=== PATIENT | female | born 1990 | race African-American/Black ===

== ENCOUNTER 2016-06-01 09:06 | Emergency (ER) | payer MEDICAID, OTHER ==
[~2016-06-01] VITALS: Ht 170.2 cm; Wt 81.5 kg
[~2016-06-01 09:06] MED LIST: BACT800T5 PO; CEPH-460 PO; NAPR-576 PO
[2016-06-01 09:07] VITALS: BP 131/90; PULSE 76; RESP 16; TEMP 98; O2SAT 100
[2016-06-01] MEDS ORDERED: IBUP800T23 PO (10:04)
[2016-06-01] MEDS ORDERED: BACT800T5 PO (10:04)
[2016-06-01] MEDS ORDERED: CEPH-460 PO (10:04)
--- NOTE | 2016-06-01 10:04 | PD ---
HPI Chief Complaint: Lump, Cyst, Hernia Time Seen by Provider: 10:02 Travel History International Travel<30 days: No Contact w/Intl Traveler<30days: No Traveled to known affect area: No History of Present Illness HPI 25-year-old female presents to the emergency Department with complaint of an abscess to her right inner thigh 2 days. Denies fever, chills, nausea, vomiting. Has not tried any treatments or medications to alleviate her symptoms. Has history of abscesses to that area and her coccyx area. Reports the abscess has actually decreased in size. The area is tender. No known allergies. No other modifying factors or associated signs and symptoms. PFSH Past Medical History Hx Anticoagulant Therapy: No Cardiovascular Problems: No Chemotherapy: No Cerebrovascular Accident: No Diabetes: No Diminished Hearing: No Hypertension: Yes Respiratory: No Immunizations Current: Yes ?: Not : 2 Para: 1 Social History Alcohol Use: No Tobacco Use: No Substance Use: No Allergies-Medications (Allergen,Severity, Reaction): Coded Allergies: No Known Allergies (Verified , 06/01/16) Reported Meds & Prescriptions Reported Meds & Active Scripts Active Ibuprofen 800 Mg Tab 800 Mg PO Q6HR PRN Bactrim DS (Sulfamethoxazole-Trimethoprim) 800-160 Mg Tab 1 Tab PO BID 10 Days Keflex (Cephalexin) 500 Mg Cap 500 Mg PO Q6H 10 Days Keflex (Cephalexin) 500 Mg Cap 500 Mg PO Q6H 5 Days Bactrim DS (Sulfamethoxazole-Trimethoprim) 800-160 Mg Tab 1 Tab PO BID Naproxen 500 Mg Tab 500 Mg PO Q12HR PRN Review of Systems Except as stated in HPI: all other systems reviewed are Neg Physical Exam Narrative GENERAL: Well-nourished, well-developed female patient, in no acute distress SKIN: There is an indurated area to the right inner thigh which measures about 1.5 cm in diameter. It is not fluctuant and there is no pointing or drainage. There is no zone of inflammation around it and no lymphangitis. The area is tender to palpation. HEAD: Atraumatic. Normocephalic. EYES: Pupils equal and round. No scleral icterus. No injection or drainage. ENT: Mucosa pink and moist. Airway patent. NECK: Trachea midline. CARDIOVASCULAR: Regular rate. RESPIRATORY: No accessory muscle use. GASTROINTESTINAL: Rounded. MUSCULOSKELETAL: No obvious deformities. No clubbing. No cyanosis. No edema. NEUROLOGICAL: Awake and alert. Oriented 3. No obvious cranial nerve deficits. Motor grossly within normal limits. Normal speech. PSYCHIATRIC: Appropriate mood and affect; insight and judgment normal. Data Data Last Documented VS Vital Signs Date Time Temp Pulse Resp B/P Pulse Ox O2 Delivery O2 Flow Rate FiO2 06/01/16 09:07 98.0 76 16 131/90 100 Room Air MDM Medical Decision Making Medical Screen Exam Complete: Yes Emergency Medical Condition: Yes Medical Record Reviewed: Yes Differential Diagnosis Abscess, cellulitis, follicularis, hydradenitis Narrative Course 25-year-old female with approximately 1.5 cm abscess to the right inner thigh that is nonfluctuant and without erythema, edema, pointing, drainage. The area is tender to palpation. I do not feel the areas ready for incision and drainage. Patient has history of abscess to this area. She also has history of pilonidal abscess. Patient is afebrile nontoxic appearing. She denies fever , chills, nausea, vomiting. Bactrim, Keflex, ibuprofen prescribed for home. Patient is medically cleared and stable for discharge. Discussed reasons to return to the emergency department. Instructed patient to follow up with primary care provider. Patient agrees with treatment plan. The patients vital signs are stable and the patient is stable for outpatient follow-up and treatment. Patient discharged home, stable and in no acute distress. Diagnosis Primary Impression: Abscess Referrals: Primary Care Physician Patient Instructions: Abscess (ED), General Instructions Departure Forms: Tests/Procedures, Work Release Enter return to work date: Jun 02, 2016 Additional Instructions: Complete full course of antibiotics Warm compresses to the affected area Keep area clean and dry Ibuprofen or Tylenol as directed meditate for pain and inflammation Follow-up with primary care provider Return to emergency department immediately with worsening of symptoms Med/Other Pt SpecificInfo: Prescription(s) given Scripts Ibuprofen 800 Mg [id number] Mg PO Q6HR PRN (PAIN) #30 TAB Ref 0 Prov:Mel Mendes PRINCIPAL TECHNOLOGIST 06/01/16 Sulfamethoxazole-Trimethoprim (Bactrim DS)800-160 Mg Tab1 Tab PO BID 10 Days Ref 0 Prov:Mel Mendes PRINCIPAL TECHNOLOGIST 06/01/16 Cephalexin (Keflex)500 Mg [id number] Mg PO Q6H 10 Days Ref 0 Prov:Mel Mendes 06/01/16 Disposition: 01 DISCHARGE HOME Condition: Stable Mel Mendes Jun 01, 2016 10:04
== END 2016-06-01 10:14 | disposition home or self-care (01) ==
LOC: NEPB 09:06
DX: L02.415 Cutaneous abscess of right lower limb (principal); I10 Essential (primary) hypertension
CPT/HCPCS: 99283

== ENCOUNTER 2016-06-23 13:07 | Emergency (ER) | payer OTHER, MEDICAID ==
[~2016-06-23 13:07] MED LIST changes: +IBUP800T23 PO; -NAPR-576 PO
[2016-06-23 13:44] VITALS: BP 121/90; PULSE 78; RESP 20; O2SAT 100
[2016-06-23] MEDS ORDERED: ORPHENADRINE INJ 60 MG/2 ML AMP IM ONE (14:15)
[2016-06-23] MEDS ORDERED: KETOROLAC TROMETHAMINE 60 MG/2 ML (IM) VIAL IM ONE (14:15)
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
[2016-06-23] MEDS ORDERED: IBUP-232 PO (16:17)
[2016-06-23] MEDS ORDERED: BACL10TA PO (16:17)
== END 2016-06-23 16:46 | disposition home or self-care (01) ==
LOC: NEPB 13:07
DX: S16.1XXA Strain of muscle, fascia and tendon at neck level, initial encounter (principal); S66.911A Strain of unspecified muscle, fascia and tendon at wrist and hand level, right hand, initial encounter; R51 Headache; I10 Essential (primary) hypertension; V89.2XXA Person injured in unspecified motor-vehicle accident, traffic, initial encounter
CPT/HCPCS: 72125; 73110; 96372; 99284; J1885; J2360

== ENCOUNTER 2017-02-20 11:45 | Emergency (ER) | payer MEDICAID ==
[~2017-02-20 11:45] MED LIST changes: +BACL10TA PO; -BACT800T5 PO; -CEPH-460 PO; +IBUP-232 PO; -IBUP800T23 PO
[2017-02-20 12:09] VITALS: BP 132/77; PULSE 84; RESP 16; TEMP 98.4; O2SAT 98
== END 2017-02-20 18:03 | disposition left against medical advice (07) ==
LOC: NED 11:45
DX: R23.8 Other skin changes (principal); Z53.21 Procedure and treatment not carried out due to patient leaving prior to being seen by health care provider
CPT/HCPCS: 99281

== ENCOUNTER 2017-05-17 09:06 | Emergency (ER) | payer MEDICAID ==
[~2017-05-17] VITALS: Ht 170.2 cm; Wt 82.0 kg
[2017-05-17 09:07] VITALS: BP 132/75; PULSE 88; RESP 14; TEMP 97.7; O2SAT 96
--- NOTE | 2017-05-17 09:27 | PD ---
HPI Chief Complaint: Cold / Flu Symptoms Time Seen by Provider: 09:18 Travel History International Travel<30 days: No Contact w/Intl Traveler<30days: No Traveled to known affect area: No History of Present Illness HPI 26-year-old female presents to the ED for evaluation of a 3 week history of intermittent nausea and vomiting. Onset gradual. Nausea exacerbated by certain odors. No alleviating factors reported. Patient states that symptoms are similar to previous symptoms. She states her last menstrual period was at the beginning of April. She denies unprotected sex since then. She endorses cold symptoms over the same period of time. She endorses chills and nonproductive cough. She denies headaches, fever, sore throat. 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 She states that her cold symptoms have improved, but her cough lingers. She did not receive this years flu vaccine. PFSH Past Medical History Hx Anticoagulant Therapy: No Cardiovascular Problems: No Chemotherapy: No Cerebrovascular Accident: No Diabetes: No Diminished Hearing: No Hypertension: Yes Respiratory: No Immunizations Current: Yes ?: Unknown LMP: APRIL 2017 : 2 Para: 1 Social History Alcohol Use: No Tobacco Use: No Substance Use: No Allergies-Medications (Allergen,Severity, Reaction): Coded Allergies: No Known Allergies (Verified Adverse Reaction, Unknown, 05/17/17) Reported Meds & Prescriptions Reported Meds & Active Scripts Active Review of Systems Except as stated in HPI: all other systems reviewed are Neg Physical Exam Narrative GENERAL: Well-nourished, well-developed AA female in no acute distress. SKIN: Warm and dry. HEAD: Normocephalic. Atraumatic. EYES: No scleral icterus. No injection or drainage. PERRLA. EOMI. ENT: Pearly lopez tympanic membranes bilaterally. Nasal mucosa is moist. Oropharynx without erythema, edema or exudate. NECK: Supple, trachea midline. No JVD or lymphadenopathy. CARDIOVASCULAR: Regular rate and rhythm without murmurs, gallops, or rubs. RESPIRATORY: Breath sounds clear and equal bilaterally. No accessory muscle use. GASTROINTESTINAL: Abdomen soft, non-tender, nondistended. + Bowel sounds MUSCULOSKELETAL: No cyanosis, or edema. BACK: Nontender without obvious deformity. No CVA tenderness. Data Data Last Documented VS Vital Signs Date Time Temp Pulse Resp B/P (MAP) Pulse Ox O2 Delivery O2 Flow Rate FiO2 05/17/17 09:07 97.7 88 14 132/75 (94) 96 Orders Orders Ed Urine Pregnancytest Poc (05/17/17 09:22) [facility] Medical Decision Making Medical Screen Exam Complete: Yes Emergency Medical Condition: Yes Differential Diagnosis Upper airway cough syndrome versus viral viral syndrome versus versus other Narrative Course 26-year-old female presents to the ED for evaluation of a 3 week history of intermittent nausea and vomiting. Nausea exacerbated by certain odors. She states that symptoms are similar to previous symptoms. She states her last menstrual period was at the beginning of April. She denies unprotected sex since then. Also complains of improving cold symptoms. Vitals reviewed. Physical exam unremarkable. Urine test positive. This is first trimester . Patient denies abdominal pain, vaginal bleeding or discharge. Patient's instructed to abstain from drinking or smoking, begin vitamins and follow up with the CHEMIST INTERN. She is stable and discharged home. Diagnosis Primary Impression: First trimester Referrals: Nurse Private Duty Patient Instructions: First Trimester (ED), General Instructions Additional Instructions: Rest, hydrate. Don't drink or smoke! Begin vitamins. These are available [id number]. Establish care with sleeping car porter as soon as possible. Return to the ED for any urgent or emergent medical condition. Disposition: 01 DISCHARGE HOME Condition: Stable Iris Lombardi May 17, 2017 09:27
== END 2017-05-17 10:05 | disposition home or self-care (01) ==
LOC: NEPK 09:06
DX: O21.9 Vomiting of pregnancy, unspecified (principal); Z3A.00 Weeks of gestation of pregnancy not specified
CPT/HCPCS: 84703; 99282

== ENCOUNTER 2017-05-31 10:02 | Emergency (ER) | payer MEDICAID, OTHER ==
[~2017-05-31] VITALS: Ht 154.9 cm; Wt 81.5 kg
[2017-05-31 10:05] VITALS: BP 120/74; PULSE 89; RESP 14; TEMP 98.5; O2SAT 99
--- NOTE | 2017-05-31 10:25 | PD ---
HPI Chief Complaint: GI Complaint Time Seen by Provider: 10:18 Travel History International Travel<30 days: No Contact w/Intl Traveler<30days: No Traveled to known affect area: No History of Present Illness HPI 26-year-old female, approximately 7 weeks , presents to the emergency Department with complaint of vaginal itching times one week. Reports nausea and vomiting yesterday. Reports subjective fevers yesterday. Denies continued vomiting or subjective fevers today. Denies abdominal pain, cramping. Denies vaginal discharge, odor, bleeding, leaking. Denies dysuria. Last menstrual period was April 02. . Is not taking any medications or tried any treatments to alleviate her symptoms. Symptoms are mild in severity. No known aggravating or relieving factors. No known exposure to STDs. PFSH Past Medical History Hx Anticoagulant Therapy: No Cardiovascular Problems: No Chemotherapy: No Cerebrovascular Accident: No Diabetes: No Diminished Hearing: No Hypertension: Yes Respiratory: No Immunizations Current: Yes ?: LMP: 7 weeks : 2 Para: 1 Social History Alcohol Use: No Tobacco Use: No Substance Use: No Allergies-Medications (Allergen,Severity, Reaction): Coded Allergies: No Known Allergies (Verified Adverse Reaction, Unknown, 05/31/17) Reported Meds & Prescriptions Reported Meds & Active Scripts Active Review of Systems Except as stated in HPI: all other systems reviewed are Neg Physical Exam Narrative GENERAL: Well-nourished, well-developed black female patient, in no acute distress; afebrile, nontoxic-appearing SKIN: Warm and dry. HEAD: Atraumatic. Normocephalic. EYES: Pupils equal and round. No scleral icterus. No injection or drainage. ENT: Mucous membranes pink and moist. NECK: Trachea midline. No lymphadenopathy. CARDIOVASCULAR: Regular rate and rhythm. No murmur appreciated. RESPIRATORY: No accessory muscle use. Clear to auscultation. Breath sounds equal bilaterally. GASTROINTESTINAL: Abdomen soft, non-tender, nondistended. Bilateral pelvic region nontender to palpation. Hepatic and splenic margins not palpable. No guarding, rigidity, rebound tenderness. PELVIC: Exam done in the presence of a nurse. Speculum exam reveals nonedematous and nonerythematous cervix with minimal creamy white, nonodorous discharge. Bimanual exam reveals no palpable masses or adnexa tenderness, no uterine tenderness. No cervical motion tenderness. BACK: No CVA tenderness. MUSCULOSKELETAL: No obvious deformities. No clubbing. No cyanosis. No edema. NEUROLOGICAL: Awake and alert. No obvious cranial nerve deficits. Motor grossly within normal limits. Normal speech. PSYCHIATRIC: Appropriate mood and affect; insight and judgment normal. Data Data Last Documented VS Vital Signs Date Time Temp Pulse Resp B/P (MAP) Pulse Ox O2 Delivery O2 Flow Rate FiO2 05/31/17 10:05 98.5 89 14 120/74 (89) 99 Orders Orders Gc And Chlamydia Pcr (05/31/17 10:24) Wet Prep Profile (05/31/17 10:24) Urinalysis - C+S If Indicated (05/31/17 10:24) Ed Urine Pregnancytest Poc (05/31/17 10:24) Labs Laboratory Tests Test 05/31/17 10:40 Urine Color YELLOW Urine Turbidity HAZY Urine pH 5.5 Urine Specific [place] 1.026 Urine Protein 30 mg/dL Urine Glucose (UA) NEG mg/dL Urine Ketones TRACE mg/dL Urine Occult Blood NEG Urine Nitrite NEG Urine Bilirubin NEG Urine Urobilinogen 2.0 MG/DL Urine Leukocyte Esterase SMALL Urine RBC 1 /hpf Urine WBC 1 /hpf Urine Squamous Epithelial Cells 10 /hpf Urine Bacteria OCC /hpf Urine Mucus MANY /lpf Microscopic Urinalysis Comment CULT NOT INDICATED Clue Cells (Wet Prep) NONE SEEN Vaginal Trichomonas (Wet Prep) NONE SEEN Vaginal Yeast (Wet Prep) NONE SEEN MDM Medical Decision Making Medical Screen Exam Complete: Yes Emergency Medical Condition: Yes Medical Record Reviewed: Yes Differential Diagnosis Vaginal yeast infection, chlamydia, gonorrhea, nausea and vomiting secondary to Narrative Course 36-year-old female, approximately 7 weeks , with vaginal itching and episode of vomiting and subjective fever yesterday. The patient is afebrile and nontoxic appearing. She has had no vomiting today. Denies abdominal pain, cramping, vaginal discharge, odor, vaginal bleeding, vaginal leaking. Chlamydia , gonorrhea, wet prep, urinalysis, UPT ordered. 1114: UPT positive. I Do not suspect cervicitis and will not treat the patient empirically. 1158: Trichomoniasis, vaginal yeast, bacterial vaginosis negative. Urinalysis without signs of infection or pyuria. Chlamydia and gonorrhea pending. Instructed patient to follow up with furnace combustion tester. Instructed patient to follow up with primary care provider. Patient verbalizes understanding and agreement with treatment plan. Patient is medically cleared and stable for discharge. Discussed reasons to return to the emergency department. Patient agrees with treatment plan. The patients vital signs are stable and the patient is stable for outpatient follow-up and treatment. Patient discharged home, stable and in no acute distress. Diagnosis Primary Impression: Vaginal itching Additional Impression: Qualified Codes: Z34.90 - Encounter for supervision of normal , unspecified, unspecified trimester Referrals: Fabrics And Material Cutter Primary Care Physician Patient Instructions: First Trimester (ED), General Instructions Additional Instructions: Follow-up with furnace combustion tester Follow-up with primary care provider Return to the emergency department immediately with worsening of symptoms Med/Other Pt SpecificInfo: No Change to Meds, No Meds Exist/No RX given Disposition: 01 DISCHARGE HOME Condition: Stable Mel Mendes May 31, 2017 10:25
[2017-05-31 11:38] LABS: BACTERIA, URINE OCC /hpf; BILIRUBIN, URINE NEG (NEG); BLOOD, URINE NEG (NEG); GLUCOSE,URINE NEG (NEG); KETONE, URINE TRACE mg/dL (NEG); MUCUS URINE MANY /lpf (OCC); NITRITE,URINE NEG (NEG); PH, URINE 5.5 (5.0-8.5); SQUAMOUS EPITHELIAL CELL URINE 10 /hpf (0-5); URINE COLOR YELLOW (YELLW/STRAW); URINE LEUKOCYTE ESTERASE SMALL (NEG)
== END 2017-05-31 12:24 | disposition home or self-care (01) ==
LOC: NEPD 10:02
DX: O26.891 Other specified pregnancy related conditions, first trimester (principal); N89.8 Other specified noninflammatory disorders of vagina; O21.9 Vomiting of pregnancy, unspecified; O16.1 Unspecified maternal hypertension, first trimester; Z3A.01 Less than 8 weeks gestation of pregnancy
CPT/HCPCS: 81001; 84703; 87210; 87491; 87591; 99283

== ENCOUNTER → 2017-07-06 | Outpatient (CLI) | payer MEDICAID | LOC: HPND 10:56 | PROVIDERS: ATTEND Obstetrics & Gynecology | DX: O30.031 Twin pregnancy, monochorionic/diamniotic, first trimester (principal) | CPT/HCPCS: 36415; 76813; 76814 ==

== ENCOUNTER → 2017-08-03 | Outpatient (CLI) | payer MEDICAID | LOC: HPND 10:37 | PROVIDERS: ATTEND Obstetrics & Gynecology | DX: O30.032 Twin pregnancy, monochorionic/diamniotic, second trimester (principal) | CPT/HCPCS: 76815; 76817 ==

== ENCOUNTER → 2017-08-17 | Outpatient (CLI) | payer MEDICAID | LOC: HPND 10:42 | PROVIDERS: ATTEND Obstetrics & Gynecology | DX: O30.032 Twin pregnancy, monochorionic/diamniotic, second trimester (principal) | CPT/HCPCS: 76811; 76812 ==

== ENCOUNTER 2017-12-27 06:42 | Inpatient (IN) ==
[2017-12-27] MEDS ORDERED: Naloxone Inj 0.4 MG/ML Vial IV.PUSH PRN ×2 (06:50→23:06)
[2017-12-27] MEDS ORDERED: Sod Chloride 0.9% Inj 1,000 ML IV.CONT PRN (06:50)
[2017-12-27] MEDS ORDERED: Sodium Chlor 0.9% Inj 500 ML IV.SIG PRN (06:50)
[2017-12-27] MEDS ORDERED: Oxytocin 30 Units/500ml Premix 30 UNITS/500 ML BAG IV.SIG ONE (06:50)
[2017-12-27] MEDS ORDERED: fentaNYL Citrate Inj 100 MCG/2 ML Ampul IV.PUSH PRN ×2 (06:50)
[2017-12-27] MEDS ORDERED: Citric Acid/Sodium Citrate Liq 30 ML UDC PO SCH (07:00)
--- NOTE | 2017-12-27 07:44 | P.HPOB ---
History of Present Illness Primary Care Physician: Bryan Crooks MD Chief Complaint: Twins at 37 weeks for induction per maternal- medicine History of Present Illness: Patient is a 27-year-old white female now 37 weeks with twin gestation who is been followed by the [facility] and the maternal- medicine service with serial ultrasounds and evaluations. The perinatologist recommended she gets delivered at 37 weeks last ultrasound showed monochorionic diamniotic twins with adequate growth and concordance with biophysical's of 10 of 10 on both babies. Patient would like a tubal ligation and had tubal papers signed and it was felt that she could just have a and get her tubes tied but I do not think that wanting her tubes tied as an indication for section when she could easily deliver vaginally both babies. Both babies are cephalic Weeks Gestation:: 37 Para: 2 : 3 - Inpatient Certification I certify that the inpatient services were ordered in accordance with Medicare regulations governing the order. This includes certification that hospital inpatient services are reasonable and necessary and in the case of services not specified as inpatient-only under 42 CFR 419.22(n), that they are appropriately provided as inpatient services in accordance to with the 2-midnight benchmark under 43 CFR 412.3(e) Estimated Total Length of Stay (Days): 3 Plans for Post Hospital Care: Home Review of Systems Constitutional: Denies anorexia, Denies body ache(s), Denies chills, Denies daytime sleepiness, Denies excessive sweating, Denies fatigue, Denies fever(s), Denies headache(s), Denies increased appetite, Denies lack of energy, Denies malaise, Denies night sweats, Denies weakness, Denies weight gain, Denies weight loss, Denies other Cardiovascular: Denies chest pain, Denies chest pain at rest, Denies chest pain with activity, Denies excessive sweating, Denies fainting, Denies fast heart rate, Denies foot swelling, Denies generalized swelling, Denies irregular heart rhythm, Denies leg pain with activity, Denies leg sores, Denies leg swelling, Denies lightheadedness, Denies radiating jaw, neck or arm pain, Denies rapid, pounding, or irregular heartbeat, Denies shortness of breath, Denies shortness of breath with activity, Denies shortness of breath when lying down, Denies shortness of breath causing sudden awakening, Denies slow heart rate, Denies other Respiratory: Denies change in phlegm color, Denies chest congestion, Denies cough, Denies coughing up blood, Denies excessive phlegm production, Denies pain on inspiration, Denies pain with cough, Denies shortness of breath, Denies shortness of breath with activity, Denies snoring, Denies stridor, Denies wheezing, Denies other Gastrointestinal: Denies abdominal pain, Denies belching, Denies black, tarry stools, Denies bloating, Denies bright, red blood in stools, Denies change in bowel habits, Denies constant urge to pass stool, Denies change in stools, Denies coffee ground vomit, Denies constipation, Denies cramping, Denies difficulty swallowing, Denies excessive passing of gas, Denies feeling full early, Denies heartburn, Denies incontinent of stools, Denies loose stools, Denies nausea, Denies pain with swallowing, Denies vomiting, Denies vomiting blood, Denies other Musculoskeletal: Denies abnormal walking, Denies back pain, Denies body aches, Denies decreased muscle mass, Denies deformity, Denies joint pain, Denies joint swelling, Denies limited joint movement, Denies loss of height, Denies muscle cramps, Denies muscle weakness, Denies neck pain, Denies numbness, Denies radiating pain into limb, Denies stiffness, Denies tingling, Denies other Neurologic: Denies abnormal hearing, Denies abnormal movements, Denies abnormal speech, Denies abnormal walking, Denies behavioral changes, Denies burning sensations, Denies confusion, Denies dizziness, Denies fainting, Denies frequent falls, Denies headache(s), Denies lack of coordination, Denies localized weakness, Denies loss of vision, Denies memory loss, Denies numbness, Denies other visual disturbances, Denies radiating pain, Denies restless legs, Denies convulsions, Denies seizure-like activity, Denies sensory deficit, Denies tingling, Denies tingling/numbness/burning sensations, Denies tremor(s), Denies unsteadiness, Denies weakness, Denies other PMFSH - History History Provided By: Patient - Tobacco History Smoking Status: Never smoker - Alcohol History How Often Do You Have a Drink Containing Alcohol: Never - Substance Use History Substance History: No History of Abuse - Travel History History of Recent Travel: No Medications and Allergies Active Medications: Active Medications Citric Acid/Sodium Citrate (Sodium Citrate/Citric Acid Liq) 30 ml PO [facility] [place] [facility] Stop: 12/31/17 06:59 Fentanyl Citrate (Fentanyl Inj) 50 mcg IV.PUSH Q1H PRN PRN Reason: Pain Scale 3 - 5 Fentanyl Citrate (Fentanyl Inj) 100 mcg IV.PUSH Q1H PRN PRN Reason: PAIN SCALE 6 TO 10 Lactated Ringer's (Lr 1000 Ml Inj) 1,000 mls @ 125 mls/hr IV.CONT .Q8H MARIAM Lactated Ringer's (Lr 1000 Ml Inj) 1,000 mls @ 3,000 mls/hr IV.SIG UNSCH PRN PRN Reason: compromise or epidural Sodium Chloride (Ns Inj) 500 mls @ 1,000 mls/hr IV.SIG UNSCH PRN PRN Reason: SEE LABEL COMMENTS Sodium Chloride (Ns Inj) 1,000 mls @ 100 mls/hr IV.CONT .Q10H PRN PRN Reason: SEE LABEL COMMENTS Lidocaine HCl (Xylocaine 1% Inj) 0.1 ml I-DERMAL PRN PRN PRN Reason: For IV start Stop: 12/30/17 06:49 Lidocaine HCl (Xylocaine 1% Inj) 10 ml INFILTRATN PRN PRN PRN Reason: For episiotomy repair Stop: 12/29/17 06:49 Mineral Oil (Muri-Lube Oil) 10 ml TOPICAL PRN PRN PRN Reason: PRN perineal massage Naloxone HCl (Narcan Inj) 0.1 mg IV.PUSH Q2M PRN PRN Reason: for opiate reversal Allergies Allergy/AdvReac Type Severity Reaction Status Date / Time No Known Allergies AdvReac Unknown none Uncoded 12/20/17 21:24 Home Medications Medication Instructions Recorded Confirmed Type Iron (ferrous sulfate) 325 mg PO DAILY 11/17/17 12/20/17 History PNV 29-1 1 tab PO DAILY 11/17/17 12/20/17 History Exam - Constitutional no acute distress - Routine HEENT Exam Head: Present: normocephalic, atraumatic Eye: Present: PERRL - Routine Respiratory Exam Present: CTA bilaterally - Routine Cardiovascular Exam Present: RRR, S1, S2 - Routine Neurological Exam Present: alert, oriented X3, CN II-XII intact Jetrinellen VTE Risk Assessment Caprini VTE Risk Assessment: No/Low Risk (score <= 1) Jetrini Risk Assessment Model: Point Value = 1 Point Value = 2 Point Value = 3 Point Value = 5 Age 41-60 Minor surgery BMI > 25 kg/m2 Swollen legs Varicose veins or History of unexplained or recurrent spontaneous Oral contraceptives or hormone replacement Sepsis (< 1 month) Serious lung disease, including pneumonia (< 1 month) Abnormal pulmonary function Acute myocardial infarction Congestive heart failure (< 1 month) History of inflammatory bowel disease Medical patient at bed rest Age 61-74 Arthroscopic surgery Major open surgery (> 45 min) Laparoscopic surgery (> 45 min) Malignancy Confined to bed (> 72 hours) Immobilizing plaster cast Central venous access Age >= 75 History of VTE Family history of VTE Factor V Leiden Prothrombin [id number] Lupus anticoagulant Anticardiolipin antibodies Elevated serum homocysteine Heparin-induced thrombocytopenia Other congenital or acquired thrombophilia Stroke (< 1 month) Elective arthroplasty Hip, pelvis, or leg fracture Acute spinal cord injury (< 1 month) Prophylaxis Regimen: Total Risk Factor Score Risk Level Prophylaxis Regimen 0-1 Low Early ambulation 2 Moderate Order ONE of the following: *Sequential Compression Device (SCD) *Heparin 5000 units SQ BID 3-4 Higher Order ONE of the following medications: *Heparin 5000 units SQ TID *Enoxaparin/Lovenox 40 mg SQ daily (WT < 150 kg, CrCl > 30 mL/min) *Enoxaparin/Lovenox 30 mg SQ daily (WT < 150 kg, CrCl > 10-29 mL/min) *Enoxaparin/Lovenox 30 mg SQ BID (WT < 150 kg, CrCl > 30 mL/min) AND/OR *Sequential Compression Device (SCD) 5 or more Highest Order ONE of the following medications: *Heparin 5000 units SQ TID (Preferred with Epidurals) *Enoxaparin/Lovenox 40 mg SQ daily (WT < 150 kg, CrCl > 30 mL/min) *Enoxaparin/Lovenox 30 mg SQ daily (WT < 150 kg, CrCl > 10-29 mL/min) *Enoxaparin/Lovenox 30 mg SQ BID (WT < 150 kg, CrCl > 30 mL/min) AND *Sequential Compression Device (SCD) Assessment and Plan - Diagnosis (1) Twin gestation in third trimester Code(s): O30.003 - Twin , unspecified number of placenta and unspecified number of amniotic sacs, third trimester Status: Acute (2) 37 weeks gestation of Code(s): Z3A.37 - 37 weeks gestation of Status: Acute - Plan Patient is a multiparous patient at 37 week twins cephalic cephalic presentation presents for an induction per maternal- medicine's request for delivery at 37 weeks. Plan AROM with Pitocin, anticipate vaginal delivery
[2017-12-27 08:00] LABS: Baso # (Auto) 0.1 th/mm3 (0.0-0.2); Baso % (Auto) 0.5 % (0.0-2.0); Eos % (Auto) 0.3 % (0.0-4.0); Hematocrit 25.4 % (35.0-46.0); Hemoglobin 8.3 gm/dL (11.6-15.3); Lymph # (Auto) 1.8 th/mm3 (1.0-4.8); Mean Corpuscular HGB Conc 32.6 % (32.0-36.0); Mean Corpuscular Hemoglobin 19.5 pg (27.0-34.0); Mean Corpuscular Volume 59.7 fL (80.0-100.0); Mean Platelet Volume 8.4 fL (7.0-11.0); Mono # (Auto) 0.6 th/mm3 (0.0-0.9); Mono % (Auto) 5.7 % (0.0-8.0); Neut # (Auto) 8.6 th/mm3 (1.8-7.7); Neut % (Auto) 77.5 % (16.0-70.0); Platelet Count 174 th/mm3 (150-450); Red Blood Count 4.26 mil/mm3 (4.00-5.30); Red Cell Distribution Width 17.1 % (11.6-17.2); White Blood Count 11.1 th/mm3 (4.0-11.0)
[2017-12-27] MEDS: Penicillin G Potassium Inj 2,500,000 UNIT in Sodium Chlor 0.9% Inj 100 ML IV.SIG SCH ×3 (08:00→20:11)
[2017-12-27] MEDS ORDERED: Oxytocin 30 Units/500ml Premix 30 UNITS/500 ML BAG IV.SIG PRN (08:20)
[2017-12-27 08:42] LABS: Amphetamine Urine With Conf Neg (Neg); Benzodiazepine Urine With Conf Neg (Neg)
[2017-12-27 08:47] LABS: Bacteria,Urine Moderate /hpf; Bilirubin,Urine Negative (Negative); Clarity,Urine Cloudy (Clear); Color,Urine Amber (Yellw/Straw); Glucose,Urine (UA) Negative (Negative); Leukocyte Esterase,Urine Large (Negative); Mucus,Urine Few /lpf (Occasional); Nitrite,Urine Negative (Negative); Specific Gravity,Urine 1.017 (1.002-1.035); Squamous Epithelial Cell,Urine 18 /hpf (0-5); Urobilinogen,Urine 4 or Greater mg/dL (Less than 2)
[2017-12-27] MEDS ORDERED: Penicillin G Potassium Inj 5,000,000 UNIT in Sodium Chloride 0.9% Inj 100 ML IV.SIG ONE (10:00)
--- NOTE | 2017-12-27 11:11 | P.PN ---
Subjective Interval history: 27-year-old 002 with IUP at 37.2 currently undergoing oxytocin induction of labor based on [facility] recommendations to deliver at 37 weeks. heart tones are reassuring. Discussed with the patient at length the risks of vaginal delivery including the risk of conversion to an emergent/stat delivery. Discussed the risks of section that include but are not limited to pain, infection, bleeding, injury to other organs like the bladder/ bowel/nerves/vessels, injury to the baby, need for repeat operation, need for hysterectomy, need for blood transfusion, wound infection/breakdown and other possible complications. The patient desires a bilateral tubal ligation if she undergoes delivery. We discussed the risks of permanent surgical sterilization including but not limited to the permanent and irreversible nature of the procedure, the inability to have other biological children without in vitro fertilization, the risk of failure of approximately 1% which could result in an ectopic that may require emergency surgery. We discussed there are other options that would preserve her ability to have additional biological children. All of the patient's questions were answered. We will proceed with current plan of induction of labor and monitor closely. Physical Exam Vital signs: Vital Signs 12/27/17 07:43 12/27/17 07:45 12/27/17 09:15 Temperature 98.4 F Pulse Rate 118 H 85 Respiratory Rate 20 Blood Pressure 135/90 117/84 12/27/17 09:30 12/27/17 10:28 12/27/17 10:30 Temperature 98.4 F Pulse Rate 86 Respiratory Rate 20 20 Blood Pressure 123/79 12/27/17 10:55 12/27/17 11:00 Temperature Pulse Rate 93 H Respiratory Rate 20 Blood Pressure 114/66 Intake & Output 12/26/17 12/27/17 12/27/17 18:59 06:59 18:59 Weight 82 kg Other: Weight On Admission 82 kg Results - Labs CBC & Chem 7: 12/27/17 07:25 Laboratory Results - last 24 hr 12/27/17 12/27/17 12/27/17 07:25 07:25 07:25 WBC 11.1 H RBC 4.26 Hgb 8.3 L Hct 25.4 L MCV 59.7 L MCH 19.5 L MCHC 32.6 RDW 17.1 Plt Count 174 MPV 8.4 Neut % (Auto) 77.5 H Lymph % (Auto) 16.0 Stanley % (Auto) 5.7 Eos % (Auto) 0.3 Baso % (Auto) 0.5 Neut # (Auto) 8.6 H Lymph # (Auto) 1.8 Stanley # (Auto) 0.6 Eos # (Auto) 0.0 Baso # (Auto) 0.1 WBC Differential . Differential Comment Auto diff final Urine Color Urine Clarity Urine pH Ur Specific [place] Urine Protein Urine Glucose (UA) Urine Ketones Urine Occult Blood Urine Nitrate Urine Bilirubin Urine Urobilinogen Ur Leukocyte Esterase Urine RBC Urine WBC Ur Squamous Epith Cells Urine Bacteria Urine Mucus Urine Yeast Micro UA Comment Urine Culture Comments Urine Opiates Screen Neg Ur Barbiturates Screen Neg Ur Amphetamine Screen Neg U Benzodiazepines Scrn Neg Urine Cocaine Screen Neg U Cannabinoids Screen Neg Blood Type B Positive Blood Type Recheck Required Antibody Screen Negative 12/27/17 07:25 WBC RBC Hgb Hct MCV MCH MCHC RDW Plt Count MPV Neut % (Auto) Lymph % (Auto) [place] % (Auto) Eos % (Auto) Baso % (Auto) Neut # (Auto) Lymph # (Auto) Stanley # (Auto) Eos # (Auto) Baso # (Auto) WBC Differential Differential Comment Urine Color Kirsten Urine Clarity Cloudy H Urine pH 6.0 Ur Specific [place] 1.017 Urine Protein 30 H Urine Glucose (UA) Negative Urine Ketones 20 Urine Occult Blood Small H Urine Nitrate Negative Urine Bilirubin Negative Urine Urobilinogen 4 or greater Ur Leukocyte Esterase Large H Urine RBC 2 Urine WBC 10 H Ur Squamous Epith Cells 18 Urine Bacteria Moderate H Urine Mucus Few H Urine Yeast Rare H Micro UA Comment Culture indicated Urine Culture Comments Culture indicated Urine Opiates Screen Ur Barbiturates Screen Ur Amphetamine Screen U Benzodiazepines Scrn Urine Cocaine Screen U Cannabinoids Screen Blood Type Blood Type Recheck Antibody Screen Assessment and Plan - Assessment (1) Twin gestation in third trimester Code(s): O30.003 - Twin , unspecified number of placenta and unspecified number of amniotic sacs, third trimester Status: Acute (2) 37 weeks gestation of Code(s): Z3A.37 - 37 weeks gestation of Status: Acute
[2017-12-27] MEDS ORDERED: Succinylcholine Inj 100 MG/5 ML Syringe IV.PUSH ONE (12:00)
[2017-12-27] MEDS ORDERED: Lidocaine PF 1% Inj 5 ML Syringe INFILTRATN ONE (12:00)
[2017-12-27] MEDS ORDERED: fentaNYL 2MCG-Bupiv 0.125% Epi 150 ML EPIDURAL ONE (14:17)
[2017-12-27] MEDS ORDERED: fentaNYL 2MCG-Bupiv 0.125% Epi 150 ML EPIDURAL PRN (15:52)
[2017-12-27] MEDS ORDERED: fentaNYL Citrate Inj 100 MCG/2 ML Ampul EPIDURAL ONE (15:52)
[2017-12-27] MEDS ORDERED: Diphtheria/Tetanus/Pertussis Vaccine Inj 0.5 ML Syringe IM ONE (16:00)
[2017-12-27] MEDS ORDERED: Measles/Mumps/Rubella Vaccine Inj 0.5 ML Vial SQ ONE (16:00)
[2017-12-27] MEDS ORDERED: miSOPROStol 200 MCG Tablet ONE ×2 (18:31→19:01)
[2017-12-27] MEDS ORDERED: Methylergonovine Inj 0.2 MG/ML Ampul ONE ×3 (18:32→18:57)
[2017-12-27] MEDS ORDERED: Tranexamic Acid Inj 1,000 MG/10 ML Ampul ONE ×2 (18:41→18:49)
[2017-12-27] MEDS ORDERED: Sodium Chlor 0.9% Inj 100 ML ONE (18:49)
[2017-12-27] MEDS ORDERED: Oxytocin 30 Units/500ml Premix 30 UNITS/500 ML BAG ONE (19:04)
[2017-12-27] MEDS ORDERED: LIDOCAINE ONE (19:18)
[2017-12-27] MEDS ORDERED: EPINEPHRINE ONE (19:18)
[2017-12-27 19:29] LABS: Baso # (Auto) 0.1 th/mm3 (0.0-0.2); Baso % (Auto) 0.6 % (0.0-2.0); Eos % (Auto) 0.1 % (0.0-4.0); Hematocrit 27.5 % (35.0-46.0); Hemoglobin 8.7 gm/dL (11.6-15.3); Lymph # (Auto) 2.1 th/mm3 (1.0-4.8); Lymph % (Auto) 12.3 % (9.0-44.0); Mean Corpuscular HGB Conc 31.8 % (32.0-36.0); Mean Corpuscular Hemoglobin 19.4 pg (27.0-34.0); Mean Corpuscular Volume 60.8 fL (80.0-100.0); Mean Platelet Volume 8.4 fL (7.0-11.0); Mono # (Auto) 0.7 th/mm3 (0.0-0.9); Mono % (Auto) 3.9 % (0.0-8.0); Neut # (Auto) 14.2 th/mm3 (1.8-7.7); Neut % (Auto) 83.1 % (16.0-70.0); Platelet Count 177 th/mm3 (150-450); Red Blood Count 4.52 mil/mm3 (4.00-5.30); White Blood Count 17.1 th/mm3 (4.0-11.0)
[2017-12-27] MEDS ORDERED: fentaNYL Citrate Inj 100 MCG/2 ML Ampul ONE (19:44)
--- NOTE | 2017-12-27 22:35 | P.PN ---
Subjective Interval history: The patient progressed to complete/complete/+1 with reassuring heart tones. She was taken to the OR with a dual set up and commenced spontaneous maternal expulsive efforts. The head of fetus a delivered spontaneously and atraumatically followed by spontaneous and atraumatic delivery of the anterior shoulder remainder of the . The was vigorous at delivery and placed on maternal abdomen where the cord was clamped after a delay of 45 seconds and taken off the field by the pediatric team. Cord blood was obtained for the nursery. An ulcer was sound was performed which revealed fetus B in cephalic presentation. Vaginal exam was performed and confirmed to be cephalic however the head was very high. After several contractions, the patient commence spontaneous maternal expulsive efforts to further bring the head into the pelvis. When the head was felt to be progressing through the vagina AROM was performed with clear fluid noted. The head delivered spontaneously and atraumatically followed by spontaneous and atraumatic delivery of the anterior shoulder remainder of the . The was also noted to be vigorous at delivery and cord clamp was delayed for 45 seconds. The was passed off to the waiting pediatric team and cord blood obtained for the nursery. Apgars 9/9, 9/9. The placenta delivered spontaneously and appeared to be intact. The patient had heavy and continued bleeding immediately . She ultimately received Methergine 0.2 mg 3, transexamic acid 1000 mg IV, and Cytotec 1000 mcg NC. In addition the patient received Cytotec 400 mcg buccally. A Desai catheter was placed under sterile conditions. The patient's bleeding improved significantly after administration of uterotonic's, however due to the continued nature of the bleeding the decision was made to more closely evaluate the cervix. The cervix was unable to be adequately visualized with a bivalve speculum, so a weighted speculum was requested. The weighted speculum was placed and the anterior lip of the cervix was visualized and did not appear to be bleeding but additional retraction was needed to adequately visualize the posterior cervix. After attempting to visualize this portion of the cervix, the patient was not able to tolerate the manipulation needed for adequate visualization. The patient's epidural was redosed, but the patient was unable to tolerate the examination so Versed was administered by vessel captain. Adequate visualization was still unable to be obtained so the decision was made to proceed with general anesthesia so adequate visualization could be obtained. SCDs were placed and the patient was repositioned with her legs in the candy cane stirrups. Adequate visualization was able to be obtained with the repositioning using the weighted speculum, sidewall retractors, and ring forceps. The cervix was noted to be friable in nature with lacerations noted at 3:00 and 5:00-6:00. The laceration at 3:00 was repaired in a running locked fashion with 2-0 chromic with adequate hemostasis. The 5:00-6:00 laceration was repaired in a similar fashion with bleeding noted during the repair process. The interior surface of the cervix was noted to be friable but was not actively bleeding. No active bleeding was noted but pressure was held for 5 minutes and any oozing areas were noted to be hemostatic without evidence of significant blood accumulated in the vagina. After prolonged observation to ensure adequate visualization, sites were noted to be hemostatic. All instruments were removed from the patient's vagina and she was positioned in the dorsal supine position. The patient was extubated in the OR and taken to the PACU. She will remain on the antepartum unit for close observation tonight. EBL 1000cc. Physical Exam Vital signs: Vital Signs 12/27/17 07:43 12/27/17 07:45 12/27/17 09:15 Temperature 98.4 F Pulse Rate 118 H 85 Respiratory Rate 20 Blood Pressure 135/90 117/84 12/27/17 09:30 12/27/17 10:28 12/27/17 10:30 Temperature 98.4 F Pulse Rate 86 Respiratory Rate 20 20 Blood Pressure 123/79 12/27/17 10:55 12/27/17 11:00 12/27/17 11:14 Temperature Pulse Rate 93 H 91 H Respiratory Rate 20 20 Blood Pressure 114/66 114/66 12/27/17 11:45 12/27/17 11:55 12/27/17 12:14 Temperature Pulse Rate 88 92 H 93 H Respiratory Rate 20 20 Blood Pressure 124/81 135/84 12/27/17 12:39 12/27/17 13:00 12/27/17 14:01 Temperature 98.2 F Pulse Rate 94 H 95 H 84 Respiratory Rate 16 Blood Pressure 101/52 L 101/58 L 122/87 12/27/17 14:40 12/27/17 14:45 12/27/17 15:00 Temperature 97.8 F Pulse Rate 112 H 96 H Respiratory Rate 20 20 Blood Pressure 139/99 H 109/63 12/27/17 15:30 12/27/17 15:45 12/27/17 15:55 Temperature Pulse Rate 92 H 98 H 93 H Respiratory Rate 20 20 Blood Pressure 106/60 105/62 106/62 12/27/17 16:00 12/27/17 16:15 12/27/17 16:30 Temperature Pulse Rate 103 H Respiratory Rate 20 20 20 Blood Pressure 136/78 12/27/17 16:35 12/27/17 16:45 12/27/17 17:00 Temperature Pulse Rate 93 H 91 H 96 H Respiratory Rate 20 Blood Pressure 134/76 134/84 12/27/17 17:29 12/27/17 17:30 12/27/17 21:15 Temperature 97.6 F Pulse Rate 109 H 105 H Respiratory Rate 20 18 Blood Pressure 134/107 H 142/65 H 12/27/17 21:30 12/27/17 21:45 12/27/17 22:00 Temperature 98.3 F Pulse Rate 100 H 92 H 94 H Respiratory Rate 20 18 20 Blood Pressure 154/71 H 138/71 139/71 Intake & Output 12/27/17 12/27/17 12/28/17 06:59 18:59 06:59 Intake Total 100 / 100 Balance 100 / 100 Weight 82 kg Intake: IV 100 / 100 Pfizerpen-G Inj 2,500,000 UNIT 100 / 100 In NS Inj 100 ML @ 200 mls/hr IV.SIG Q4H [facility] Rx#:[id number] Other: Weight On Admission 82 kg Results - Labs CBC & Chem 7: 12/27/17 19:00 Laboratory Results - last 24 hr 12/27/17 12/27/17 12/27/17 07:25 07:25 07:25 WBC 11.1 H RBC 4.26 Hgb 8.3 L Hct 25.4 L MCV 59.7 L MCH 19.5 L MCHC 32.6 RDW 17.1 Plt Count 174 MPV 8.4 Neut % (Auto) 77.5 H Lymph % (Auto) 16.0 [place] % (Auto) 5.7 Eos % (Auto) 0.3 Baso % (Auto) 0.5 Neut # (Auto) 8.6 H Lymph # (Auto) 1.8 [place] # (Auto) 0.6 Eos # (Auto) 0.0 Baso # (Auto) 0.1 WBC Differential . Differential Comment Auto diff final Fibrinogen Urine Color Urine Clarity Urine pH Ur Specific [place] Urine Protein Urine Glucose (UA) Urine Ketones Urine Occult Blood Urine Nitrate Urine Bilirubin Urine Urobilinogen Ur Leukocyte Esterase Urine RBC Urine WBC Ur Squamous Epith Cells Urine Bacteria Urine Mucus Urine Yeast Micro UA Comment Urine Culture Comments Urine Opiates Screen Neg Ur Barbiturates Screen Neg Ur Amphetamine Screen Neg U Benzodiazepines Scrn Neg Urine Cocaine Screen Neg U Cannabinoids Screen Neg Blood Type B Positive Blood Type Recheck Required Antibody Screen Negative MTS Gel Crossmatch 12/27/17 12/27/17 12/27/17 07:25 19:00 19:22 WBC 17.1 H D RBC 4.52 Hgb 8.7 L Hct 27.5 L MCV 60.8 L MCH 19.4 L MCHC 31.8 L RDW 17.0 Plt Count 177 MPV 8.4 Neut % (Auto) 83.1 H Lymph % (Auto) 12.3 [place] % (Auto) 3.9 Eos % (Auto) 0.1 Baso % (Auto) 0.6 Neut # (Auto) 14.2 H Lymph # (Auto) 2.1 [place] # (Auto) 0.7 Eos # (Auto) 0.0 Baso # (Auto) 0.1 WBC Differential . Differential Comment Auto diff final Fibrinogen Urine Color Kirsten Urine Clarity Cloudy H Urine pH 6.0 Ur Specific [place] 1.017 Urine Protein 30 H Urine Glucose (UA) Negative Urine Ketones 20 Urine Occult Blood Small H Urine Nitrate Negative Urine Bilirubin Negative Urine Urobilinogen 4 or greater Ur Leukocyte Esterase Large H Urine RBC 2 Urine WBC 10 H Ur Squamous Epith Cells 18 Urine Bacteria Moderate H Urine Mucus Few H Urine Yeast Rare H Micro UA Comment Culture indicated Urine Culture Comments Culture indicated Urine Opiates Screen Ur Barbiturates Screen Ur Amphetamine Screen U Benzodiazepines Scrn Urine Cocaine Screen U Cannabinoids Screen Blood Type Blood Type Recheck Antibody Screen MTS Gel Crossmatch See Detail 12/27/17 20:25 WBC RBC Hgb Hct MCV MCH MCHC RDW Plt Count MPV Neut % (Auto) Lymph % (Auto) [place] % (Auto) Eos % (Auto) Baso % (Auto) Neut # (Auto) Lymph # (Auto) [place] # (Auto) Eos # (Auto) Baso # (Auto) WBC Differential Differential Comment Fibrinogen 361 Urine Color Urine Clarity Urine pH Ur Specific [place] Urine Protein Urine Glucose (UA) Urine Ketones Urine Occult Blood Urine Nitrate Urine Bilirubin Urine Urobilinogen Ur Leukocyte Esterase Urine RBC Urine WBC Ur Squamous Epith Cells Urine Bacteria Urine Mucus Urine Yeast Micro UA Comment Urine Culture Comments Urine Opiates Screen Ur Barbiturates Screen Ur Amphetamine Screen U Benzodiazepines Scrn Urine Cocaine Screen U Cannabinoids Screen Blood Type Blood Type Recheck Antibody Screen MTS Gel Crossmatch Assessment and Plan - Assessment (1) Twin gestation in third trimester Code(s): O30.003 - Twin , unspecified number of placenta and unspecified number of amniotic sacs, third trimester Status: Acute (2) 37 weeks gestation of Code(s): Z3A.37 - 37 weeks gestation of Status: Acute
--- NOTE | 2017-12-27 22:42 | P.OBDELI ---
Weeks Gestation: 37 Anesthesia: Epidural Episiotomy: none Vaginal Delivery: Normal Presentation: Occiput anterior Nuchal Cord: None Delayed Cord Clamping (45 sec): Yes Placenta: Spontaneous delivery Laceration: None Estimated blood loss (mL): 1,000 Infant: Male, Multiple Infant Male A score (1 min): 9 score (5 min): 9 Female B score (1 min): 9 score (5 min): 9
[2017-12-27] MEDS ORDERED: Zolpidem Tartrate 5 MG Tablet PO PRN (23:06)
[2017-12-27] MEDS ORDERED: Benzocaine 20% Top Spray 60 ML Can TOPICAL PRN (23:06)
[2017-12-27] MEDS ORDERED: Bisacodyl 10 MG Supp RECTAL PRN (23:06)
[2017-12-27] MEDS ORDERED: Witch Hazel 50%/Glyderin 12.5% 40 Pad Jar RECTAL PRN (23:06)
[2017-12-27] MEDS ORDERED: Acetaminophen 325 MG Tablet PO PRN (23:06)
[2017-12-27] MEDS ORDERED: Oxytocin 30 Units/500ml Premix 30 UNITS/500 ML BAG IV.CONT SCH (23:15)
[2017-12-28 00:39] LABS: Hemoglobin 8.5 gm/dL (11.6-15.3); Mean Corpuscular HGB Conc 32.9 % (32.0-36.0); Mean Corpuscular Hemoglobin 19.8 pg (27.0-34.0); Mean Corpuscular Volume 60.4 fL (80.0-100.0); Mean Platelet Volume 8.3 fL (7.0-11.0); Platelet Count 168 th/mm3 (150-450); Red Cell Distribution Width 17.1 % (11.6-17.2); White Blood Count 16.1 th/mm3 (4.0-11.0)
[2017-12-28] MEDS: Penicillin G Potassium Inj 2,500,000 UNIT in Sodium Chlor 0.9% Inj 100 ML IV.SIG SCH ×6 (02:00→21:55)
[2017-12-28] MEDS ORDERED: medroxyPROGESTERone Acetate Inj 150 MG/ML Syringe IM ONE (08:19)
--- NOTE | 2017-12-28 08:19 | P.PNOB ---
Subjective Interval history: Patient is a 27-year-old female post day 1 after planned induction at 37 weeks with twin gestation. Patient's pain is well-controlled. Patient reports eating and drinking without nausea or vomiting. She reports vaginal bleeding that is close to a regular period. She is ambulating well. Patient is urinating without any pain or difficulty. Patient denies any chest pain, shortness of breath, nausea, vomiting, fever, chills, calf pain, or new lower extremity swelling. Objective Vital Signs/I&O: Vital Signs 12/27/17 09:15 12/27/17 09:30 12/27/17 10:28 Temperature 98.4 F Pulse Rate 85 Respiratory Rate 20 Blood Pressure 117/84 12/27/17 10:30 12/27/17 10:55 12/27/17 11:00 Temperature Pulse Rate 86 93 H Respiratory Rate 20 20 Blood Pressure 123/79 114/66 12/27/17 11:14 12/27/17 11:45 12/27/17 11:55 Temperature Pulse Rate 91 H 88 92 H Respiratory Rate 20 20 Blood Pressure 114/66 124/81 12/27/17 12:14 12/27/17 12:39 12/27/17 13:00 Temperature 98.2 F Pulse Rate 93 H 94 H 95 H Respiratory Rate 20 16 Blood Pressure 135/84 101/52 L 101/58 L 12/27/17 14:01 12/27/17 14:40 12/27/17 14:45 Temperature 97.8 F Pulse Rate 84 112 H Respiratory Rate 20 Blood Pressure 122/87 139/99 H 12/27/17 15:00 12/27/17 15:30 12/27/17 15:45 Temperature Pulse Rate 96 H 92 H 98 H Respiratory Rate 20 20 20 Blood Pressure 109/63 106/60 105/62 12/27/17 15:55 12/27/17 16:00 12/27/17 16:15 Temperature Pulse Rate 93 H 103 H Respiratory Rate 20 20 Blood Pressure 106/62 136/78 12/27/17 16:30 12/27/17 16:35 12/27/17 16:45 Temperature Pulse Rate 93 H 91 H Respiratory Rate 20 20 Blood Pressure 134/76 12/27/17 17:00 12/27/17 17:29 12/27/17 17:30 Temperature Pulse Rate 96 H 109 H Respiratory Rate 20 Blood Pressure 134/84 134/107 H 12/27/17 21:15 12/27/17 21:30 12/27/17 21:45 Temperature 97.6 F Pulse Rate 105 H 100 H 92 H Respiratory Rate 18 20 18 Blood Pressure 142/65 H 154/71 H 138/71 12/27/17 22:00 12/28/17 00:01 12/28/17 00:02 Temperature 98.3 F 99.2 F Pulse Rate 94 H 98 H Respiratory Rate 20 Blood Pressure 139/71 136/77 12/28/17 00:15 12/28/17 01:15 12/28/17 05:09 Temperature 98.5 F Pulse Rate 85 Respiratory Rate 18 3 L 18 Blood Pressure 124/71 12/28/17 07:18 12/28/17 07:25 Temperature 98.0 F Pulse Rate 75 Respiratory Rate 18 Blood Pressure 139/91 H Intake & Output 12/27/17 12/28/17 12/28/17 18:59 06:59 18:59 Intake Total 100 / 100 Balance 100 / 100 Weight 82 kg Intake: IV 100 / 100 Pfizerpen-G Inj 2,500,000 UNIT 100 / 100 In NS Inj 100 ML @ 200 mls/hr IV.SIG Q4H REPLACED BY [facility] Rx#:[id number] Other: Weight On Admission 82 kg Result Diagrams: 12/29/17 09:30 Objective Remarks: GENERAL: Well-nourished, well-developed patient. CARDIOVASCULAR: Regular rate and rhythm without murmurs, gallops, or rubs. RESPIRATORY: Breath sounds equal bilaterally. No accessory muscle use. ABDOMEN/GI: Abdomen soft, non-tender, bowel sounds present. Fundus: Firm, mildly tender at umbilicus. GENITOURINARY: Light to moderate bleeding. EXTREMITIES: No cyanosis or edema, non-tender, without signs of DVT. Medications and IVs: Active Medications Acetaminophen (Tylenol) 650 mg PO Q4H PRN PRN Reason: PAIN SCALE 1 TO 2 Al Hydroxide/Mg Hydroxide (Milk Of Magnesia Liq) 30 ml PO Q12H PRN PRN Reason: Mild Constipation Benzocaine (Americaine 20% Top [place]) 1 spray TOPICAL Q4H PRN PRN Reason: For Perineum Discomfort Bisacodyl (Dulcolax Supp) 10 mg RECTAL DAILY PRN PRN Reason: SEVERE CONSITIPATION Citric Acid/Sodium Citrate (Sodium Citrate/Citric Acid Liq) 30 ml PO [employer] REPLACED BY [facility] Stop: 12/31/17 06:59 Ephedrine Sulfate (Ephedrine/Ns Syringe) 10 mg IV.PUSH UNSCH PRN PRN Reason: SEE LABEL COMMENTS Stop: 12/28/17 15:52 Fentanyl Citrate (Fentanyl Inj) 50 mcg IV.PUSH Q1H PRN PRN Reason: Pain Scale 3 - 5 Fentanyl Citrate (Fentanyl Inj) 100 mcg IV.PUSH Q1H PRN PRN Reason: PAIN SCALE 6 TO 10 Ferrous Sulfate (Ferosul) 325 mg PO DAILY REPLACED BY [facility] Lactated Ringer's (Lr 1000 Ml Inj) 1,000 mls @ 125 mls/hr IV.CONT .Q8H REPLACED BY [facility] Last Admin: 12/28/17 06:38 Dose: Not Given Lactated Ringer's (Lr 1000 Ml Inj) 1,000 mls @ 3,000 mls/hr IV.SIG UNSCH PRN PRN Reason: compromise or epidural Last Admin: 12/27/17 13:58 Dose: 3,000 mls/hr Sodium Chloride (Ns Inj) 500 mls @ 1,000 mls/hr IV.SIG UNSCH PRN PRN Reason: SEE LABEL COMMENTS Sodium Chloride (Ns Inj) 1,000 mls @ 100 mls/hr IV.CONT .Q10H PRN PRN Reason: SEE LABEL COMMENTS Oxytocin (Pitocin 30 Units/Ns 500 Ml Premix) 30 units in 500 mls @ 1 mls/hr IV.SIG TITRATE PRN; Protocol PRN Reason: For induction of labor Last Admin: 12/27/17 09:49 Dose: 1 milliunit/min, 1 mls/hr Penicillin G Potassium 2,500, (000 unit/ Sodium Chloride) 100 mls @ 200 mls/hr IV.SIG Q4H REPLACED BY [facility] Last Admin: 12/28/17 07:25 Dose: Not Given Fentanyl/Bupivacaine/Sodium Chlor (Fentanyl 2 Mcg-Bupiv 0.125% Epi) 150 mls @ 12 mls/hr EPIDURAL PRN PRN PRN Reason: for Labor Pain Ibuprofen (Motrin) 800 mg PO Q8H PRN PRN Reason: For cramping Last Admin: 12/28/17 07:34 Dose: 800 mg Lactulose (Lactulose Liq) 30 ml PO DAILY PRN PRN Reason: SEVERE CONSITIPATION Lidocaine HCl (Xylocaine 1% Inj) 0.1 ml I-DERMAL PRN PRN PRN Reason: For IV start Lidocaine HCl (Xylocaine 1% Inj) 10 ml INFILTRATN PRN PRN PRN Reason: For episiotomy repair Mineral Oil (Muri-Lube Oil) 10 ml TOPICAL PRN PRN PRN Reason: PRN perineal massage Miscellaneous Information (Misc Information) 1 each OTHER UNSCH PRN PRN Reason: SEE LABEL COMMENTS Stop: 12/28/17 15:52 Miscellaneous Information (Misc Information) 1 each OTHER UNSCH PRN PRN Reason: SEE LABEL COMMENTS Stop: 12/28/17 15:52 Naloxone HCl (Narcan Inj) 0.1 mg IV.PUSH Q2M PRN PRN Reason: for opiate reversal Naloxone HCl (Narcan Inj) 0.1 mg IV.PUSH Q2M PRN PRN Reason: for opiate reversal Ondansetron HCl (Zofran Odt) 4 mg PO Q6H PRN PRN Reason: NAUSEA OR VOMITING Oxycodone/Acetaminophen (Percocet 5/325 Mg) 1 tab PO Q4H PRN PRN Reason: PAIN SCALE 3 TO 5 Oxycodone/Acetaminophen (Percocet 5/325 Mg) 2 tab PO Q4H PRN PRN Reason: PAIN SCALE 6 TO 10 Vit/Calcium/Iron/Folic Ac (Stuartnatal Plus 3) 1 tab PO DAILY [facility] Senna/Docusate Sodium (Vaishnavi-Colace) 1 tab PO BID [facility] Sennosides (Senokot) 17.2 mg PO Q12H PRN PRN Reason: Moderate Constipation Sodium Chloride (Ns Flush) 2 ml IV.FLUSH BID [facility] Sodium Chloride (Ns Flush) 2 ml IV.FLUSH PRN PRN PRN Reason: FLUSH AFTER USING IV ACCESS Witch Aubree/Glycerin (Tucks Pads) 1 applicatio RECTAL QID PRN PRN Reason: HEMORRHOIDS Zolpidem Tartrate (Ambien) 5 mg PO HS PRN PRN Reason: SLEEP Assessment and Plan - Plan Patient is a 27-year-old female post day 1 after planned induction at 37 weeks with twin gestation. Patient is status post hemorrhage, status post methergine X3 and TXA x2. Patient was counseled to do 6 weeks of pelvic rest. Patient was counseled to follow up in 6 weeks. -- Follow up with CBC --Continue routine care --Motrin and Percocet when necessary for pain --Encourage OOB --Pelvic rest for 6 weeks will need follow-up appointment at that time. --Contraception: Desires Depo Provera --Anticipate discharge tomorrow - Attending Attestation I personally saw and examined patient who is PPD#1 from vaginal twin delivery and PPH and POD#1 from repair of cervical laceration. The patient is doing well today and reports only minimal bleeding. Continue routine care, followup Hgb. SMS
[2017-12-28] MEDS: Ferrous Sulfate 325 MG Tablet PO SCH (11:02)
[2017-12-28] MEDS: Prenatal Vit/Ca/Iron/Folic Acid Tablet PO SCH (11:02)
[2017-12-28] MEDS: Senna/Docusate Sodium 8.6/50 MG Tablet PO SCH ×2 (11:02→20:41)
[2017-12-28 15:24] LABS: Hematocrit 25.6 % (35.0-46.0); Hemoglobin 8.1 gm/dL (11.6-15.3); Mean Corpuscular HGB Conc 31.8 % (32.0-36.0); Mean Corpuscular Hemoglobin 19.3 pg (27.0-34.0); Mean Corpuscular Volume 60.7 fL (80.0-100.0); Mean Platelet Volume 8.4 fL (7.0-11.0); Platelet Count 192 th/mm3 (150-450); Red Blood Count 4.22 mil/mm3 (4.00-5.30); White Blood Count 13.3 th/mm3 (4.0-11.0)
[2017-12-29] MEDS: Penicillin G Potassium Inj 2,500,000 UNIT in Sodium Chlor 0.9% Inj 100 ML IV.SIG SCH ×2 (04:22→06:28)
[2017-12-29] MEDS: Ferrous Sulfate 325 MG Tablet PO SCH (08:09)
[2017-12-29] MEDS: Senna/Docusate Sodium 8.6/50 MG Tablet PO SCH (08:09)
[2017-12-29] MEDS: Prenatal Vit/Ca/Iron/Folic Acid Tablet PO SCH (08:09)
[2017-12-29 09:46] LABS: Hematocrit 25.5 % (35.0-46.0); Mean Corpuscular HGB Conc 31.4 % (32.0-36.0); Mean Corpuscular Hemoglobin 19.3 pg (27.0-34.0); Mean Corpuscular Volume 61.4 fL (80.0-100.0); Mean Platelet Volume 8.4 fL (7.0-11.0); Platelet Count 193 th/mm3 (150-450); Red Blood Count 4.15 mil/mm3 (4.00-5.30); Red Cell Distribution Width 17.2 % (11.6-17.2); White Blood Count 8.9 th/mm3 (4.0-11.0)
--- NOTE | 2017-12-29 09:48 | P.PNOB ---
Subjective Interval history: Patient is a 27-year-old G 3 P 2 delivered at 37 weeks and 2 days. Patient is day 2 after induction of vaginal delivery for twin gestation. Patient 's pain is well-controlled. Patient reports eating and drinking without nausea or vomiting. She reports minimal vaginal bleeding and is ambulating well. Patient is urinating and passing flatus but has not yet had a bowel movement. Patient denies any chest pain, shortness of breath, nausea, vomiting, fever, chills, calf pain, or new lower extremity swelling. Objective Vital Signs/I&O: Vital Signs 12/28/17 20:00 12/29/17 04:22 12/29/17 08:00 Temperature 97.9 F 98.1 F Pulse Rate 85 85 Respiratory Rate 18 Blood Pressure 127/80 129/81 Result Diagrams: 12/29/17 09:30 Objective Remarks: GENERAL: Well-nourished, well-developed patient. CARDIOVASCULAR: Regular rate and rhythm without murmurs, gallops, or rubs. RESPIRATORY: Breath sounds equal bilaterally. No accessory muscle use. ABDOMEN/GI: Abdomen soft, non-tender. Fundus: Firm, non-tender at umbilicus. GENITOURINARY: Light to moderate bleeding. EXTREMITIES: No cyanosis or edema, non-tender, without signs of DVT. Medications and IVs: Active Medications Acetaminophen (Tylenol) 650 mg PO Q4H PRN PRN Reason: PAIN SCALE 1 TO 2 Al Hydroxide/Mg Hydroxide (Milk Of Magnesia Liq) 30 ml PO Q12H PRN PRN Reason: Mild Constipation Benzocaine (Americaine 20% Top [place]) 1 spray TOPICAL Q4H PRN PRN Reason: For Perineum Discomfort Bisacodyl (Dulcolax Supp) 10 mg RECTAL DAILY PRN PRN Reason: SEVERE CONSITIPATION Citric Acid/Sodium Citrate (Sodium Citrate/Citric Acid Liq) 30 ml PO [employer] [facility] Stop: 12/31/17 06:59 Fentanyl Citrate (Fentanyl Inj) 50 mcg IV.PUSH Q1H PRN PRN Reason: Pain Scale 3 - 5 Fentanyl Citrate (Fentanyl Inj) 100 mcg IV.PUSH Q1H PRN PRN Reason: PAIN SCALE 6 TO 10 Ferrous Sulfate (Ferosul) 325 mg PO DAILY [facility] Last Admin: 12/29/17 08:09 Dose: 325 mg Lactated Ringer's (Lr 1000 Ml Inj) 1,000 mls @ 125 mls/hr IV.CONT .Q8H [facility] Last Admin: 12/29/17 00:06 Dose: Not Given Lactated Ringer's (Lr 1000 Ml Inj) 1,000 mls @ 3,000 mls/hr IV.SIG UNSCH PRN PRN Reason: compromise or epidural Last Admin: 12/27/17 13:58 Dose: 3,000 mls/hr Sodium Chloride (Ns Inj) 500 mls @ 1,000 mls/hr IV.SIG UNSCH PRN PRN Reason: SEE LABEL COMMENTS Sodium Chloride (Ns Inj) 1,000 mls @ 100 mls/hr IV.CONT .Q10H PRN PRN Reason: SEE LABEL COMMENTS Oxytocin (Pitocin 30 Units/Ns 500 Ml Premix) 30 units in 500 mls @ 1 mls/hr IV.SIG TITRATE PRN; Protocol PRN Reason: For induction of labor Last Admin: 12/27/17 09:49 Dose: 1 milliunit/min, 1 mls/hr Penicillin G Potassium 2,500, (000 unit/ Sodium Chloride) 100 mls @ 200 mls/hr IV.SIG Q4H [facility] Last Admin: 12/29/17 06:28 Dose: Not Given Fentanyl/Bupivacaine/Sodium Chlor (Fentanyl 2 Mcg-Bupiv 0.125% Epi) 150 mls @ 12 mls/hr EPIDURAL PRN PRN PRN Reason: for Labor Pain Ibuprofen (Motrin) 800 mg PO Q8H PRN PRN Reason: For cramping Last Admin: 12/29/17 08:05 Dose: 800 mg Lactulose (Lactulose Liq) 30 ml PO DAILY PRN PRN Reason: SEVERE CONSITIPATION Lidocaine HCl (Xylocaine 1% Inj) 0.1 ml I-DERMAL PRN PRN PRN Reason: For IV start Lidocaine HCl (Xylocaine 1% Inj) 10 ml INFILTRATN PRN PRN PRN Reason: For episiotomy repair Mineral Oil (Muri-Lube Oil) 10 ml TOPICAL PRN PRN PRN Reason: PRN perineal massage Naloxone HCl (Narcan Inj) 0.1 mg IV.PUSH Q2M PRN PRN Reason: for opiate reversal Naloxone HCl (Narcan Inj) 0.1 mg IV.PUSH Q2M PRN PRN Reason: for opiate reversal Ondansetron HCl (Zofran Odt) 4 mg PO Q6H PRN PRN Reason: NAUSEA OR VOMITING Oxycodone/Acetaminophen (Percocet 5/325 Mg) 1 tab PO Q4H PRN PRN Reason: PAIN SCALE 3 TO 5 Oxycodone/Acetaminophen (Percocet 5/325 Mg) 2 tab PO Q4H PRN PRN Reason: PAIN SCALE 6 TO 10 Vit/Calcium/Iron/Folic Ac (Stuartnatal Plus 3) 1 tab PO DAILY [facility] Last Admin: 12/29/17 08:09 Dose: 1 tab Senna/Docusate Sodium (Vaishnavi-Colace) 1 tab PO BID [facility] Last Admin: 12/29/17 08:09 Dose: 1 tab Sennosides (Senokot) 17.2 mg PO Q12H PRN PRN Reason: Moderate Constipation Sodium Chloride (Ns Flush) 2 ml IV.FLUSH BID [facility] Last Admin: 12/28/17 20:42 Dose: 2 ml Sodium Chloride (Ns Flush) 2 ml IV.FLUSH PRN PRN PRN Reason: FLUSH AFTER USING IV ACCESS Witch Aubree/Glycerin (Tucks Pads) 1 applicatio RECTAL QID PRN PRN Reason: HEMORRHOIDS Zolpidem Tartrate (Ambien) 5 mg PO HS PRN PRN Reason: SLEEP Assessment and Plan - Plan Patient is a 27-year-old female post day 2 after planned induction at 37 weeks with twin gestation. Patient is status post hemorrhage, status post methergine X3 and TXA x2. Patient was counseled to do 6 weeks of pelvic rest. Patient was counseled to follow up in 6 weeks. H/H this morning was 8.0/25.5. Patient is stable asymptomatic and feeling well. --Discharge home today --Continue routine care --Motrin when necessary for pain --Encourage OOB --Pelvic rest for 6 weeks will need follow-up appointment at that time. --Contraception: Status post Depo-Provera
== END 2017-12-29 13:40 | disposition home or self-care (01) ==
LOC: H2E 06:42 → H1EA 12-28 07:49
PROVIDERS: ADMIT Obstetrics & Gynecology Maternal & Fetal Medicine; ATTEND Obstetrics & Gynecology Maternal & Fetal Medicine